=== PATIENT | male | born 1980 | race Hispanic/Latino ===

== ENCOUNTER 2024-09-27 21:11 | Emergency (ER) | payer SELFPAY ==
[2024-09-27 21:25] VITALS: BP 131/75; PULSE 80; RESP 17; TEMP 36.7; O2SAT 97; BMI 31.3
--- NOTE | 2024-09-27 22:21 | PC.NURSE ---
Patient notified registration that they were leaving @ [id number].
== END 2024-09-27 22:00 | disposition left against medical advice (07) ==
PROVIDERS: Emergency Provider Emergency Medicine
DX: M54.89 Other dorsalgia (principal)
CPT/HCPCS: 99281